=== PATIENT | male | born 1985 | race Caucasian/White ===

== ENCOUNTER 2018-05-30 14:55 | Emergency (ER) | payer OTHER ==
--- NOTE | 2018-05-30 15:23 | EDPHY ---
H & P Time Seen by Provider: 05/30/18 15:22 HPI/ROS: CHIEF COMPLAINT: Right flank pain HISTORY OF PRESENT ILLNESS: Symptoms started this morning and were much worse for last 3 hr. He felt like he had to urinate multiple times and for the past 3 hr has had pain in his right flank radiating to the tip of his penis. Not better or worse with movement, currently severe. Not associated with fever chills vomiting or diarrhea. No testicular symptoms, no fever or rash, no recent injury. REVIEW OF SYSTEMS: Eye: no change in vision ENT: no sore throat Cardiac: no chest pain or syncope Pulmonary: no cough or SOB Abdomen: HPI Musculoskeletal: HPI Skin: no rash Neuro: no headache Constitutional: no fever : HPI A comprehensive 10 point review of systems is otherwise negative aside from elements mentioned in the history of present illness. PAST MEDICAL HISTORY: Negative Family history: Negative for renal colic Social history: No primary care physician General Appearance: Alert and conversant, cooperative. Eyes: No scleral icterus. ENT, Mouth: Normal mucous membranes. Respiratory: Normal respiratory effort, breath sounds equal, lungs are clear to auscultation. Cardiovascular: Regular rate and rhythm. Gastrointestinal: Abdomen is soft and non tender. Specifically nontender over McBurney's point, normal male . Neurological: Alert, face symmetric, normal motor and sensory in extremities. Skin: Warm and dry, no rashes. Musculoskeletal: No peripheral edema. Psychiatric: Not agitated. Emergency Department course/MDM: Urinalysis reviewed with microscopic hematuria, clinically high likelihood for renal colic. Dilaudid 1 mg IV, i-STAT, does not have UTI on urinalysis. CT abdomen pelvis discussed and consented. 1610: Creatinine 1.1, Toradol 15 mg IV. 1642: Isuani; distal 3 mm ureteral stone with mild hydronephrosis. Discussed with the patient and reviewed on the computer with him. Pain is starting to come back a little bit. Oral Percocet x1, Toradol was held because he took 8 mg oral ibuprofen at 2:00 p.m.. He would like to go home and try to pass this non operatively which I think is reasonable. Large heart on CT per Isemmetti, patient warned needs followup with Cardiology within the next month. Smoking Status: Never smoked Constitutional: Initial Vital Signs Temperature (C) 36.6 C 05/30/18 14:59 Heart Rate 70 05/30/18 14:59 Respiratory Rate 16 05/30/18 14:59 Blood Pressure 125/80 H 05/30/18 14:59 O2 Sat (%) 96 05/30/18 14:59 O2 Delivery Mode Room Air Allergies/Adverse Reactions: No Known Allergies Allergy (Unverified 05/30/18 14:58) Home Medications: Medication Instructions Recorded oxyCODONE/APAP 5/325 [Percocet] 1 - 2 tab PO Q4-6PRN PRN #11 tab 05/30/18 Medical Decision Making - Diagnostics Imaging Results: Imaging Impressions Abdomen/Pelvis CT 05/30/18 15:33 Impression: 1. Mild right hydroureteronephrosis secondary to a 3-mm obstructing calculus in the distal right ureterovesical junction. 2. No additional nephrolithiasis. 3. No left hydronephrosis or nephrolithiasis. 4. Mild cardiomegaly. Findings and recommendations discussed with Emergency Department physician, Reginald Hua M.D., at 1644 hours, on May 30, 2018. Final report concurs with initial preliminary interpretation. Attention: This CT examination is specifically designed to evaluate patients who are clinically suspected of having acute obstructive uropathy. This examination does not use radiographic contrast, and as such, provides only a limited evaluation of the abdomen, pelvis, and retroperitoneum. If there is further clinical suspicion for pathological conditions other than obstructive uropathy, a complete CT evaluation of the abdomen and pelvis utilizing intravenous, oral, and rectal contrast should be considered. E:GI/amm Imaging: Discussed imaging studies w/ crew caller Radiologist Differential Diagnosis: Differential diagnosis considered for flank pain including but not limited to musculoskeletal causes, kidney stone, pyelonephritis, shingles, and intra- abdominal causes such as diverticulitis and appendicitis. - Data Points Laboratory Results: 05/30/18 05/30/18 16:00 15:00 POC Hgb 15.0 gm/dL gm/dL (13.7-17.5) POC Hct 44 % % (40-51) POC Sodium 145 mEq/L mEq/L (135-145) POC Potassium 3.6 mEq/L mEq/L (3.3-5.0) POC Chloride 106 mEq/L mEq/L (97-110) POC BUN 19 mg/dL mg/dL (7-23) POC Creatinine 1.1 mg/dL mg/dL (0.7-1.3) POC Glucose 103 mg/dL H mg/dL (70-100) Urine Color YELLOW Urine Appearance MODERATELY TURBID Urine pH 5.0 (5.0-7.5) Ur Specific [place] 1.029 (1.002-1.030) Urine Protein NEGATIVE (NEGATIVE) Urine Ketones NEGATIVE (NEGATIVE) Urine Blood 2+ H (NEGATIVE) Urine Nitrate NEGATIVE (NEGATIVE) Urine Bilirubin NEGATIVE (NEGATIVE) Urine Urobilinogen NEGATIVE EU EU (0.2-1.0) Ur Leukocyte Esterase NEGATIVE (NEGATIVE) Urine RBC 50-182 /hpf H /hpf (0-3) Urine WBC 0-1 /hpf /hpf (0-3) Ur Epithelial Cells NONE SEEN /lpf /lpf (NONE-1+) Amorphous Sediment PRESENT /hpf /hpf (NONE-1+) Urine Mucus 4+ /lpf H /lpf (NONE-1+) Urine Glucose NEGATIVE (NEGATIVE) Medications Given: Discontinued Medications Hydromorphone HCl (Dilaudid) 1 mg IVP EDNOW ONE Stop: 05/30/18 15:34 Last Admin: 05/30/18 15:51 Dose: 1 mg Sodium Chloride (Ns) 1,000 mls @ 0 mls/hr IV EDNOW ONE; Wide Open PRN Reason: Protocol Stop: 05/30/18 15:34 Last Admin: 05/30/18 15:51 Dose: 1,000 mls Ketorolac Tromethamine (Toradol) 15 mg IVP EDNOW ONE Stop: 05/30/18 16:10 Last Admin: 05/30/18 16:36 Dose: Not Given Ondansetron HCl (Zofran) 4 mg IVP EDNOW ONE Stop: 05/30/18 15:34 Last Admin: 05/30/18 15:50 Dose: 4 mg Oxycodone/Acetaminophen (Percocet 5/325) 1 tab PO EDNOW ONE Stop: 05/30/18 16:49 Last Admin: 05/30/18 16:51 Dose: 1 tab Point of Care Test Results: Chemistry 05/30/18 16:00 POC Sodium 145 mEq/L mEq/L (135-145) POC Potassium 3.6 mEq/L mEq/L (3.3-5.0) POC Chloride 106 mEq/L mEq/L (97-110) POC BUN 19 mg/dL mg/dL (7-23) POC Creatinine 1.1 mg/dL mg/dL (0.7-1.3) POC Glucose 103 mg/dL H mg/dL (70-100) ISTAT H&H 05/30/18 16:00 POC Hgb 15.0 gm/dL gm/dL (13.7-17.5) POC Hct 44 % % (40-51) Departure - Departure Clinical Impression: Renal colic on right side Condition: Good Instructions: Renal Colic (ED) Additional Instructions: You have a 3 mm distal right ureteral kidney stone. Increase oral fluid intake. Oral ibuprofen 600 mg every 8 hr for the next 3 days. Strain urine and bring any stone that you catch to the follow-up urologist. Referrals: Jacob Fish MD [Medical Doctor] - 2-3 days, if not improved Garcia Stark MD [Medical Doctor] - As per Instructions (see this doctor in the next 2 weeks; you had a large heart noted on CT which needs followup.) Prescriptions: oxyCODONE/APAP 5/325 [Percocet] 1 - 2 tab PO Q4-6PRN PRN #11 tab PRN Reason: Pain
[2018-05-30] MEDS ORDERED: NS 1,000 ML IV ONE (15:33)
[2018-05-30] MEDS ORDERED: ONDANSETRON 4 MG/2 ML VIAL IVP ONE (15:33)
[2018-05-30] MEDS ORDERED: HYDROmorphONE/DILAUDID 2 MG/ML INJ IVP ONE (15:33)
[2018-05-30] MEDS ORDERED: HYDROmorphONE/DILAUDID 1 MG/ML INJ ONE (15:42)
[2018-05-30] MEDS ORDERED: KETOROLAC 30 MG/1 ML SDV IVP ONE (16:09)
[2018-05-30 16:34] VITALS: BP 151/89
[2018-05-30] MEDS ORDERED: OXYCODONE/APAP 5/325 TAB PO ONE (16:48)
== END 2018-05-30 17:26 | disposition home or self-care (01) ==
DX: N20.1 Calculus of ureter (principal); E86.9 Volume depletion, unspecified
CPT/HCPCS: 82435-PO; 82565-PO; 82947-PO; 84132-PO; 84295-PO; 84520-PO; 85014-ER; 96374; J1170; J1885; J2405